=== PATIENT | female | born 1995 | race Caucasian/White ===

== ENCOUNTER 2023-01-16 07:21 | Inpatient (IN) | payer OTHER ==
[2023-01-16 08:03] LABS: Fetal Membranes Rupture RUPTURE DETECTED (No Rupture)
[2023-01-16 08:05] VITALS: BMI 32.3
[2023-01-16] MEDS ORDERED: Ondansetron PF 4 MG/2 ML Vial IVP PRN ×4 (08:42→23:44)
[2023-01-16] MEDS ORDERED: HYDROcodone/Acetaminophen 5/325 mg Tablet PO PRN ×2 (08:42)
[2023-01-16] MEDS ORDERED: fentaNYL 50 mcg/mL 1 mL Vial SLOW IVP PRN (08:42)
[2023-01-16] MEDS ORDERED: Ibuprofen 800 MG TAB PO PRN (08:42)
[2023-01-16] MEDS ORDERED: hydrALAZINE 20 MG/ML VIAL SLOW IVP PRN (08:42)
[2023-01-16] MEDS ORDERED: Promethazine HCl 25 MG/ML VIAL IM PRN ×4 (08:42→23:44)
[2023-01-16] MEDS ORDERED: Lidocaine 1% (PF) 30 ML VIAL SC PRN (08:42)
[2023-01-16] MEDS ORDERED: Diphenoxylate HCl/Atropine Tablet PO PRN ×2 (08:42)
[2023-01-16] MEDS ORDERED: Methylergonovine 0.2 MG/ML VIAL IM PRN (08:42)
[2023-01-16] MEDS ORDERED: Carboprost 250 MCG/ML AMP IM PRN (08:42)
[2023-01-16] MEDS ORDERED: Misoprostol 200 MCG TAB PR PRN (08:42)
[2023-01-16] MEDS ORDERED: Acetaminophen 500 MG TAB PO PRN (08:42)
[2023-01-16] MEDS ORDERED: NS w/ Oxytocin 30 units 500 ML IV SCH ×2 (08:45)
[2023-01-16] MEDS: Lactated Ringer's 1,000 ML IV SCH ×2 (09:30→14:51)
[2023-01-16 10:03] LABS: Mean Corpuscular HGB CONC 32.3 g/dL (32.0-36.0); Mean Corpuscular Hemoglobin 27.3 pg (27.0-33.0); Mean Corpuscular Volume 84.6 fl (81.6-98.3); Mean Platelet Volume 12.7 fl (7.4-10.4); Platelet Count 221 10x3/uL (150-450); RBC Distribution Width 17.4 % (11.5-14.5); Red Blood Cell (RBC) Count 4.03 10x6/uL (3.90-5.03); White Blood Cell (WBC) Count 13.6 10x3/uL (3.5-10.5)
[2023-01-16] MEDS: Misoprostol 100 MCG TAB PO SCH ×2 (10:12→13:34)
[2023-01-16 10:37] LABS: HBSAg Index 0.56 S/CO (0-0.99); Hep B Surf Ag - L&D Non-Reactive S/CO (NonReactive); Syphilis Antibody Nonreactive (Nonreactive); Syphilis Antibody Index 0.07 S/CO (<1.00 Non-Reactive)
[2023-01-16] MEDS ORDERED: fentaNYL/Ropivacaine Epidural 100 ML ONE (14:19)
[2023-01-16] MEDS ORDERED: ePHEDrine Sulfate 50 MG/10 ML VIAL SLOW IVP PRN (15:09)
[2023-01-16] MEDS ORDERED: Lactated Ringer's 500 ML IV PRN (15:09)
[2023-01-16] MEDS ORDERED: Moisturizing Cream (Eucerin) 113 GM JAR TOP PRN ×2 (15:09→21:41)
[2023-01-16] MEDS ORDERED: Acetaminophen 325 MG TAB PO PRN (15:09)
[2023-01-16] MEDS ORDERED: Naloxone HCl 0.4 mg/ml Vial IVP PRN ×4 (15:09→21:41)
[2023-01-16] MEDS ORDERED: Communication Order-Pharmacy FS SCH ×2 (15:15→21:45)
[2023-01-16] MEDS ORDERED: fentaNYL 2 mcg/Ropivacaine 0.2% Epidural 100 ML CADD EPIDURAL SCH (15:15)
[2023-01-16] MEDS ORDERED: Azithromycin 500 MG VIAL ONE (21:16)
[2023-01-16] MEDS ORDERED: CEFAZOLIN 2 GM VIAL ONE (21:16)
[2023-01-16] MEDS ORDERED: Famotidine/PF 20 mg/2ml Vial ONE (21:17)
[2023-01-16] MEDS ORDERED: Tranexamic Acid 1,000 MG/10 ML VIAL ONE (21:18)
[2023-01-16] MEDS ORDERED: Methylergonovine 0.2 MG/ML VIAL ONE (21:18)
[2023-01-16] MEDS ORDERED: Misoprostol 200 MCG TAB ONE (21:18)
[2023-01-16] MEDS ORDERED: Carboprost 250 MCG/ML AMP ONE (21:18)
[2023-01-16] MEDS ORDERED: Clindamycin/D5W 900 mg/50 ml Premix Bag ONE (21:26)
[2023-01-16] MEDS ORDERED: Clindamycin/D5W 900 MG in Premix Bag 1 BAG IVPB SCH (21:30)
[2023-01-16] MEDS ORDERED: Azithromycin 500 MG in Sodium Chloride 0.9% 250 ML 250 ML IVPB SCH (21:30)
[2023-01-16] MEDS ORDERED: Meperidine HCl/PF 25 MG/ML VIAL SLOW IVP PRN (21:41)
[2023-01-16] MEDS ORDERED: Fentanyl 100 MCG/2 ML VIAL SLOW IVP PRN (21:41)
[2023-01-16] MEDS ORDERED: diphenhydrAMINE 50 MG/ML VIAL IVP PRN (21:41)
[2023-01-16] MEDS ORDERED: Naloxone HCl 0.4 mg/ml Vial IV PRN (21:41)
[2023-01-16] MEDS ORDERED: Ondansetron HCl/PF 4 MG/2 ML Vial IVP PRN (21:41)
[2023-01-16] MEDS ORDERED: Promethazine HCl 25 MG SUPP PR PRN (21:41)
[2023-01-16] MEDS ORDERED: Ondansetron PF 4 MG/2 ML Vial ONE (21:46)
[2023-01-16] MEDS ORDERED: Ketorolac Tromethamine 30 MG/ML VIAL ONE (21:46)
[2023-01-16] MEDS ORDERED: Dexamethasone 4 mg/ml Vial ONE (21:46)
[2023-01-16] MEDS ORDERED: Lidocaine 2% MPF 10 ML AMP (For Epidural Use) ONE (21:46)
[2023-01-16] MEDS ORDERED: PHENYLEPHRINE-NS 100 MCG/ML 10 ML SYRINGE ONE (21:50)
[2023-01-16] MEDS ORDERED: Bupivacaine 0.25% HCL 30 ML VIAL ONE (21:57)
[2023-01-16] MEDS ORDERED: Fentanyl 250 MCG/5 ML VIAL ONE (21:58)
[2023-01-16] MEDS ORDERED: Ketamine 50 MG/ML (10ML VIAL) ONE (21:59)
[2023-01-16] MEDS ORDERED: Promethazine HCl 25 MG/ML VIAL ONE (21:59)
[2023-01-16] MEDS ORDERED: Midazolam HCl 2 mg/2 ml Vial ONE (22:02)
[2023-01-16] MEDS ORDERED: Oxytocin 10 UNITS/ML VIAL ONE (22:10)
[2023-01-16 22:24] LABS: pH (Cord, venous) 7.252 (7.250-7.350)
[2023-01-16] MEDS ORDERED: Morphine PF 10 MG/10 ML VIAL ONE (22:31)
[2023-01-16] MEDS ORDERED: Lidocaine 2% PF 100 mg/5 ml Syringe ONE (22:39)
[2023-01-16] MEDS ORDERED: Boostrix 0.5 ML (Tdap) VIAL (>/=7 yrs of age) IM ONE (23:44)
[2023-01-16] MEDS ORDERED: Simethicone Chewable 80 MG TAB PO PRN (23:44)
[2023-01-17] MEDS: Misoprostol 100 MCG TAB PO SCH ×2 (01:49→15:27)
[2023-01-17] MEDS: Lactated Ringer's 1,000 ML IV SCH ×2 (01:52→15:22)
[2023-01-17] MEDS: Ketorolac Tromethamine 30 MG/ML VIAL IVP SCH ×3 (04:26→18:04)
[2023-01-17 04:42] LABS: Mean Corpuscular Hemoglobin 27.7 pg (27.0-33.0); Mean Platelet Volume 11.5 fl (7.4-10.4); Platelet Count 192 10x3/uL (150-450); RBC Distribution Width 17.6 % (11.5-14.5); Red Blood Cell (RBC) Count 3.25 10x6/uL (3.90-5.03); White Blood Cell (WBC) Count 19.6 10x3/uL (3.5-10.5)
[2023-01-17] MEDS ORDERED: HYDROcodone/Acetaminophen 5/325 mg Tablet PO PRN (09:45)
[2023-01-17] MEDS: Docusate 100 MG CAP PO SCH ×2 (15:26→21:09)
[2023-01-17] MEDS: Ferrous Sulfate 325 MG TAB PO SCH (15:26)
[2023-01-17] MEDS: diphenhydrAMINE 50 MG/ML VIAL IVP PRN ×2 (15:58→21:10)
[2023-01-18] MEDS: Ketorolac Tromethamine 30 MG/ML VIAL IVP SCH (00:04)
[2023-01-18] MEDS: Docusate 100 MG CAP PO SCH ×2 (08:45→21:31)
[2023-01-18] MEDS: Misoprostol 100 MCG TAB PO SCH ×3 (10:42→10:44)
[2023-01-18] MEDS: Lactated Ringer's 1,000 ML IV SCH ×3 (10:42→10:44)
[2023-01-18] MEDS: Ferrous Sulfate 325 MG TAB PO SCH (10:43)
[2023-01-18] MEDS: HYDROcodone/Acetaminophen 5/325 mg Tablet PO PRN ×3 (12:05→19:53)
[2023-01-18] MEDS ORDERED: Terbutaline Sulfate 1 MG/ML VIAL ONE (16:00)
[2023-01-18] MEDS ORDERED: Bupivacaine HCl 0.5%/Epinephrine 1:200,000/PF 30 ml Vial ONE (16:00)
[2023-01-18] MEDS ORDERED: Lidocaine 2% MPF 10 ML AMP (For Epidural Use) ONE (16:00)
[2023-01-19] MEDS: HYDROcodone/Acetaminophen 5/325 mg Tablet PO PRN ×2 (03:50→08:34)
[2023-01-19 07:22] VITALS: BP 132/77; TEMP 97.9
[2023-01-19] MEDS: Ferrous Sulfate 325 MG TAB PO SCH (08:32)
[2023-01-19] MEDS: Docusate 100 MG CAP PO SCH (08:32)
[2023-01-19] MEDS: Lactated Ringer's 1,000 ML IV SCH (08:59)
== END 2023-01-19 12:20 | disposition home or self-care (01) | DRG 787 ==
LOC: CSHERS 07:21 → CSHLD 08:44 → CSHPP 01-17 01:20
PROVIDERS: ADMIT Obstetrics & Gynecology; ATTEND Obstetrics & Gynecology
PROC: 10D00Z1 Extraction of Products of Conception, Low, Open Approach (ICD-10-PCS; principal; 2023-01-16)
PROC: 3E0P7VZ Introduction of Hormone into Female Reproductive, Via Natural or Artificial Opening (ICD-10-PCS; 2023-01-16)
PROC: 4A133R1 Monitoring of Arterial Saturation, Peripheral, Percutaneous Approach (ICD-10-PCS; 2023-01-16)
DX: O42.02 Full-term premature rupture of membranes, onset of labor within 24 hours of rupture (principal); D62 Acute posthemorrhagic anemia; Z3A.40 40 weeks gestation of pregnancy; O48.0 Post-term pregnancy; Z37.0 Single live birth; O69.81X0 Labor and delivery complicated by cord around neck, without compression, not applicable or unspecified; O76 Abnormality in fetal heart rate and rhythm complicating labor and delivery; Z88.2 Allergy status to sulfonamides; Z88.8 Allergy status to other drugs, medicaments and biological substances; O62.1 Secondary uterine inertia; O32.4XX0 Maternal care for high head at term, not applicable or unspecified; O90.81 Anemia of the puerperium
CPT/HCPCS: 51702; 82805; 84112; 85027; 86780; 86850; 86900; 86901; 87340; 99285; J1100; J1200; J1885; J2001; J2250; J2274; J2405; J2550; J2590; J3010; J3105; J7120; S0020